=== PATIENT | female | born 1980 | race Caucasian/White ===

== ENCOUNTER 2017-09-07 07:51 | Emergency (ER) | payer OTHER ==
[2017-09-07 08:00] VITALS: BP 122/74
--- NOTE | 2017-09-07 08:33 | EDPHY ---
H & P Stated Complaint: L hand pain-tripped last night Time Seen by Provider: 09/07/17 08:27 HPI/ROS: Chief Complaint: Left hand pain HPI: The patient presents the emergency department with complaints of left hand pain after a trip and fall last night. The patient denies any additional injury. She has tenderness and soft tissue swelling along the 4th and 5th metacarpals. The patient denies any associated numbness or weakness. REVIEW OF SYSTEMS: Neuro: no headache, numbness, weakness Musculoskeletal: as above Skin: no abrasion or lacerations Source: Patient Exam Limitations: No limitations - Personal History LMP (Females 10-55): Unknown Current Tetanus/Diphtheria Vaccine: Unsure Current Tetanus Diphtheria and Acellular Pertussis (TDAP): Unsure - Medical/Surgical History Hx Asthma: No Hx Chronic Respiratory Disease: No Hx Diabetes: No Hx Cardiac Disease: No Hx Renal Disease: No Hx Cirrhosis: No Hx Alcoholism: No Hx HIV/AIDS: No Hx Splenectomy or Spleen Trauma: No Other PMH: MS - Social History Smoking Status: Current every day smoker - Physical Exam Exam: General: No acute distress Left hand: Mild soft tissue swelling and tenderness noted in the palmar aspect of the left hand between the areas of the 4th and 5th metacarpals. Normal range of motion appreciated with flexion extension Neuro: Sensation intact to light touch Skin: No abrasions or lacerations Constitutional: Initial Vital Signs Temperature (C) 37.0 C 09/07/17 07:58 Heart Rate 85 09/07/17 07:58 Respiratory Rate 16 09/07/17 07:58 Blood Pressure 122/74 H 09/07/17 07:58 O2 Sat (%) 98 09/07/17 07:58 O2 Delivery Mode Room Air Allergies/Adverse Reactions: No Known Allergies Allergy (Unverified 09/07/17 07:57) Home Medications: Medication Instructions Recorded Ocrevus 09/07/17 Medical Decision Making - Diagnostics Imaging Results: Left hand x-ray: Images reviewed by myself, negative for acute fracture ED Course/Re-evaluation: The patient presents to the ED for evaluation of a hand injury. I see no obvious fracture on her x-ray today. The patient will be placed in a Velcro splint. She is advised to follow up with our on-call hand surgeon for any ongoing symptoms as this may be the sign of an injury not noted on the x-ray today. Differential Diagnosis: Differential diagnosis considered includes fracture, sprain, dislocation Departure - Departure Disposition: Home, Routine, Self-Care Clinical Impression: Strain of left hand Condition: Good Instructions: Musculoskeletal Pain (ED) Additional Instructions: 1. Wear splint for comfort. 2. Your x-rays demonstrate no obvious fracture by my interpretation. The radiologist will review the study later today. 3. Follow up with the orthopedic surgeon you have been referred to for any pain which persists past 3-5 days as this may be the sign of an injury not noted on the x-ray today. 4. Take Ibuprofen or Motrin 600 mg by mouth three times a day. Referrals: Brennen Galloway MD [Medical Doctor] - As per Instructions
== END 2017-09-07 08:45 | disposition home or self-care (01) ==
DX: S66.912A Strain of unspecified muscle, fascia and tendon at wrist and hand level, left hand, initial encounter (principal); F17.200 Nicotine dependence, unspecified, uncomplicated; W01.0XXA Fall on same level from slipping, tripping and stumbling without subsequent striking against object, initial encounter
CPT/HCPCS: L3984